=== PATIENT | female | born 2000 | race Caucasian/White ===

== ENCOUNTER 2022-07-28 01:57 | Emergency (ER) | payer BC ==
[2022-07-28] MEDS ORDERED: Ondansetron PF 4 MG/2 ML Vial ONE (02:18)
[2022-07-28] MEDS ORDERED: Morphine 4 MG/ML VIAL ONE (02:18)
[2022-07-28 02:48] LABS: Bilirubin Neg (Negative); Blood, Urine 10 (Negative); Clarity Clear (Clear); Glucose, Urine (Dipstick) Normal (Negative); Ketone, Urine Negative (Negative); Leukocyte Negative (Negative); Nitrite Negative (Negative); Protein, Urine (Dipstick) Negative (Neg-Trace); Urobilinogen Normal mg/dL (Less than 2)
[2022-07-28 02:48] LABS: #Basophils 0.1 10x3/uL (0.0-0.2); #Eosinphils 0.1 10x3/uL (0.0-0.5); #Monocytes 0.8 10x3/uL (0.0-1.1); #Neutrophils 5.3 10x3/uL (1.5-8.4); %Basophils 0.9 % (0.0-2.0); %Eosinophils 0.9 % (0.0-6.0); %Lymphocytes 30.6 % (18.0-47.0); %Monocytes 8.6 % (0.0-10.0); %Neutrophils 58.6 % (40.0-75.0); Hemoglobin 13.2 g/dL (12.0-15.5); Mean Corpuscular HGB CONC 33.4 g/dL (32.0-36.0); Mean Corpuscular Hemoglobin 30.6 pg (27.0-33.0); Mean Corpuscular Volume 91.6 fl (81.6-98.3); Platelet Count 296 10x3/uL (150-450); RBC Distribution Width 12.3 % (11.5-14.5); Red Blood Cell (RBC) Count 4.31 10x6/uL (3.90-5.03)
[2022-07-28 02:52] LABS: BHCG - Serum Negative (NEGATIVE); Pregs Control Background? CLEAR/WHITE (CLR/WHITE); Pregs Control Bar Appear? YES (CONTROL BAR)
[2022-07-28 02:56] LABS: ALT (SGPT) 14 U/L (8-55); AST (SGOT) 19 U/L (5-34); Albumin 4.3 g/dL (3.5-5.0); Alkaline Phosphatase 49 U/L (40-110); Anion Gap 16 mmol/L (10-20); BUN (Urea Nitrogen) 11 mg/dL (7.0-18.7); Bilirubin, Total 0.3 mg/dL (0.2-1.2); CK (CPK) 94 U/L (29-168); Calc. Creatinine Clearance 0 mL/min (70-130); Calcium 9.3 mg/dL (7.8-10.44); Carbon Dioxide 21 mmol/L (22-29); Chloride 104 mmol/L (98-107); Estimated GFR 126; Globulin 3.2 g/dL (2.4-3.5); Glucose 108 mg/dL (70-105); Lipase 27 U/L (8-78); Potassium 3.6 mmol/L (3.5-5.1); Protein, Total 7.5 g/dL (6.0-8.3); Sodium 137 mmol/L (136-145)
[2022-07-28 02:58] LABS: Bacteria/HPF None Seen HPF (None Seen); RBC/HPF 0-3 HPF (0-3); Squamous Epithelial 0-3 HPF (0-3); WBC/HPF 0-3 HPF (0-3)
== END 2022-07-28 04:34 | disposition home or self-care (01) ==
LOC: CSHERS 01:57
DX: R10.9 Unspecified abdominal pain (principal)
CPT/HCPCS: 74177; 80053; 81003; 81015; 82550; 83690; 84703; 85025; 96374; 96375; J2270; J2405